=== PATIENT | female | born 1960 | race Caucasian/White ===

== ENCOUNTER 2019-10-28 09:27 | Inpatient (IN) | payer SELFPAY ==
[~2019-10-28] VITALS: Ht 170.2 cm; Wt 78.0 kg
[2019-10-28] VITALS (7 sets, daily range): BP systolic 86–97; BP diastolic 49–62
[~2019-10-28 09:27] MED LIST: IBUP400T21 PO; LEVO75TA6 PO; REDCAP2 PO
[2019-10-28] MEDS ORDERED: ACETAMINOPHEN IV 100 ML IV ONE (09:56)
[2019-10-28] MEDS ORDERED: ceFAZolin 1GM/50ML 100 ML IV ONE (09:56)
[2019-10-28] MEDS ORDERED: CELECOXIB 100 MG CAP ONE (09:56)
[2019-10-28] MEDS ORDERED: GENTAMICIN SULF 80 MG/2 ML VIAL ONE (09:57)
[2019-10-28] MEDS ORDERED: GENTAMICIN SULFATE 80 MG in D5W 5% 100 ML IV ONE (10:00)
[2019-10-28] MEDS ORDERED: PREGABALIN CAPSULE 75 MG CAP PO ONE (10:00)
[2019-10-28] MEDS ORDERED: CELECOXIB 100 MG CAP PO ONE (10:00)
[2019-10-28] MEDS ORDERED: ACETAMINOPHEN IV 1000 MG/100ML (10MG/ML) IV ONE (10:00)
[2019-10-28] MEDS ORDERED: VANCOMYCIN HCL 1000 MG VL ONE (10:38)
[2019-10-28] MEDS ORDERED: KETOROLAC TROMETH 30 MG/ML 1ML VIAL ONE (10:38)
[2019-10-28] MEDS ORDERED: TRANEXAMIC ACID 20 ML ONE (10:39)
[2019-10-28] MEDS ORDERED: BUPIVACAINE W/ EPINEPH 0.25% INJ 50ML MDV ONE (10:39)
[2019-10-28] MEDS ORDERED: MORPHINE SULF(PF) 0.5MG/ML 10ML VIAL ONE ×2 (10:51→11:21)
[2019-10-28] MEDS ORDERED: PHENYLEPHRINE HCL 10 MG/ML VL IV ONE (11:12)
[2019-10-28] MEDS ORDERED: TETRACAINE 1% INJ 2 ML VIAL IJ ONE (11:18)
[2019-10-28] MEDS ORDERED: MIDAZOLAM HCL 1MG/1ML-2 ML VIAL ONE (11:21)
[2019-10-28] MEDS ORDERED: fentaNYL CITRATE 100 MCG/2 ML VL ONE (11:21)
[2019-10-28] MEDS ORDERED: DexAMETHasone SOD PHOS 10MG/1ML VIAL INJ ONE (11:55)
[2019-10-28] MEDS ORDERED: PROPOFOL 10 MG/ML 20 ML IV ONE (11:55)
[2019-10-28] MEDS ORDERED: LABETALOL HCL 5 MG/ML 4ML SYRINGE IV PRN (12:00)
[2019-10-28] MEDS ORDERED: MIDAZOLAM HCL 1MG/1ML-2 ML VIAL IV PRN (12:00)
[2019-10-28] MEDS ORDERED: HYDROmorphone HCL 2 MG/ML VL IV PRN ×2 (12:00→14:15)
[2019-10-28] MEDS ORDERED: ONDANSETRON HCL 4 MG/2 ML VIAL IV PRN ×2 (12:00→14:15)
[2019-10-28] MEDS ORDERED: diphenhdrAMINE HCL 50 MG/1 ML VL IV PRN (12:00)
[2019-10-28] MEDS ORDERED: NALBUPHINE HCL 10 MG/1ml INJECTION SUBCUT ONE (12:00)
[2019-10-28] MEDS ORDERED: DexAMETHasone SOD PHOS 10MG/1ML VIAL INJ IV PRN (12:00)
[2019-10-28] MEDS ORDERED: KETOROLAC TROMETH 30 MG/ML 1ML VIAL IV PRN (12:00)
[2019-10-28] MEDS ORDERED: ePHEDrine SULFATE 50 MG/ML AMP IV PRN (12:00)
[2019-10-28] MEDS ORDERED: NALOXONE HCL 0.4 MG/ML VIAL IV PRN (12:00)
[2019-10-28] MEDS ORDERED: MORPHINE SULF INJ 2 MG/ML SYRINGE 1ML IV PRN (14:15)
[2019-10-28] MEDS ORDERED: NITROGLYCERIN 0.4 MG SL TAB SL PRN (14:15)
--- NOTE | 2019-10-28 15:15 | NUR ---
PT TRANSFERRED FROM OR, S/P LEFT HIP REPLACEMENT, PT SLEEPY, AWAKEN UPON VERBAL STIMULI. ORIENTED TO ENVIRONMENT. LEFT HIP DRESSING IN PLACE CDI, ABDUCTOR PAD IN PLACE. +1 PULSES TO BLE, SENSATION INTACT, PT ON 2LNC AT 100%, PLACED ON TELEMETRY: SR AT 61. BED LOCKED AND IN LOWEST POSITION, CALL LIGHT WITHIN REACH, FAMILY AT BEDSIDE. WILL CONTINUE TO MONITOR.
[2019-10-28] MEDS: ceFAZolin 1GM/50ML 50 ML IV SCH ×2 (15:57→20:04)
[2019-10-28] MEDS: LACTATED RINGER'S 1,000 ML IV SCH ×2 (15:57→21:53)
--- NOTE | 2019-10-28 17:00 | NUR ---
PT AWAKE, ALERT, ORIENTEDx4, DENIES PAIN AT MOMENT. EFFORTLESS BREATHING ON 2LNC 99% RR:15. WILL CONTINUE TO MONITOR.
[2019-10-28] MEDS: KETOROLAC TROMETH 30 MG/ML 1ML VIAL IV SCH (18:19)
--- NOTE | 2019-10-28 19:30 | NUR ---
Opening Shift Note Assumed care of patient, awake and alert. No S/S of distress/SOB or pain. Instructed on POC and to call for assist PRN, will continue to monitor for changes Q1hr and PRN.
--- NOTE | 2019-10-28 21:30 | NUR ---
Pt alert with no complaints of pain. Pt dressing on Left hip is clean, dry and intact. Resp 18, Hr 55 bpm, B/P 96/60. No distress noted. Will continue to monitor pt.
[2019-10-28] MEDS: DOCUSATE SOD 100 MG CAP PO SCH (21:52)
[2019-10-29] VITALS (18 sets, daily range): BP systolic 71–115; BP diastolic 43–70
[2019-10-29] MEDS: KETOROLAC TROMETH 30 MG/ML 1ML VIAL IV SCH ×4 (00:19→17:15)
[2019-10-29] MEDS: ceFAZolin 1GM/50ML 50 ML IV SCH (02:23)
--- NOTE | 2019-10-29 06:00 | NUR ---
Hernández catheter dc'd Order to discontinue hernández catheter. Hernández dc'd with clean technique following deflation of balloon. Patient tolerated well with no complaints of pain. Continue care.
[2019-10-29] MEDS: LEVOTHYROXINE SODIUM 50 MCG TAB PO SCH (06:15)
[2019-10-29 06:21] LABS: Hematocrit 30.9 % (36.0-46.0); Hemoglobin 10.8 g/dL (12.2-16.2)
[2019-10-29 06:43] LABS: Albumin 2.6 g/dL (3.4-5.0); Calcium 8.4 mg/dL (8.5-10.1); Potassium 4.4 mmol/L (3.5-5.1)
[2019-10-29 06:48] LABS: BUN/Creatinine Ratio 22.5; Bilirubin, Total 0.4 mg/dL (0.2-1.0); Total Protein 5.2 g/dL (6.4-8.2)
[2019-10-29] MEDS: LACTATED RINGER'S 1,000 ML IV SCH ×2 (07:52→20:07)
--- NOTE | 2019-10-29 09:50 | NUR ---
PATIENT AMBULATING WITH PHYSICAL THERAPY, TOLERATING ACTIVITY WELL. AMBULATING WITH FWW. [facility] ONTINUE TO MONITOR.
[2019-10-29] MEDS: ENOXAPARIN SOD 40 MG/0.4 ML SYRINGE SC SCH (10:00)
--- NOTE | 2019-10-29 10:30 | NUR ---
PT SITTING AT BEDSIDE CHAIR. PT SUDDENLY STATES " I FEEL FUZZY, NOT CLEAR VISION"; PT APPEARS LETHARGIC, VS: 91; 18; 100%2LNC; 106/88; BLOOD SUGAR: 118 PT TRANSFERRED BACK INTO BED, PHYSICAL THERAPY STAFF AT BEDSIDE. PT NOW IN BED AND STATES "I DO NOT FEEL FUZZY AT THE MOMENT", PT ORIENTED x4. IV FLUIDS INFUSING, COMFORTABLE ENVIRONMENT PROVIDED, FAMILY AT BEDSIDE, PT RESPONDS TO COMMANDS. BED LOCKED AND IN LOWEST POSITION, CALL LIGHT WITHIN REACH. WILL CONTINUE TO MONITOR.
[2019-10-29] MEDS: DOCUSATE SOD 100 MG CAP PO SCH ×2 (11:10→21:36)
[2019-10-29] MEDS: PANTOPRAZOLE 40 MG TAB PO SCH (11:10)
--- NOTE | 2019-10-29 11:40 | NUR ---
DR. BHARDWAJ IN TO SEE PT. PT AWAKE, ALERT, ORIENTEDx4. LOVENOX ON HOLD, PER MD. WILL CONTINUE TO MONITOR.
--- NOTE | 2019-10-29 16:49 | NUR ---
assessment Patient is a 59 year old female who is alert and oriented. Patients cognitive abilities are intact. Prior to admission patient lived home with family and functioned independently. Patient informed me she is able to care for her own ADLs. Per patient she will return home to her prior living arrangements post discharge and family will transport her home. Patient has been admitted for left hip replacement. Patient has a fww for home use. Patient may need home health for PT on discharge. Patient has [facility] [employer] insurance. Healthcare bills are paid 3 months in the rear. I informed patient she has a right to speak to a licensed master social worker regarding all care. I informed patient she has a right to participate in any and all discharge planning. Patient does not have a POA and advanced directive. I have offered patient information on POA and advanced directives. I informed the patient the advantages and benefits of having an Advanced Directive. Patient verbalized understanding and agreed to discharge plan. Addendum: 10/29/19 at 1654 by Shayna JONAS Amended: Links added.
--- NOTE | 2019-10-29 19:30 | NUR ---
Opening Shift Note Assumed care of patient, awake and alert. No S/S of distress/SOB. Instructed on POC and to call for assist PRN, will continue to monitor for changes Q1hr and PRN.
--- NOTE | 2019-10-29 20:15 | NUR ---
Patient transferred to [facility] with minimal assistance. Patient complaining of minimal to moderate pain with movement. Will provide PRN pain medication and continue to monitor.
[2019-10-29] MEDS: ACETAMINOPHEN 325 MG TAB PO PRN (21:36)
[2019-10-30] MEDS: KETOROLAC TROMETH 30 MG/ML 1ML VIAL IV SCH (00:17)
[2019-10-30 05:33] VITALS: BP 106/56
[2019-10-30] MEDS: LACTATED RINGER'S 1,000 ML IV SCH ×3 (06:02→21:21)
[2019-10-30 06:15] LABS: Basophils # (auto) 0 uL; Basophils % (auto) 0.1 % (0.0-2.0); Eosinophils # (auto) 0 uL; Eosinophils % (auto) 0.4 % (0.0-7.0); Hemoglobin 10.1 g/dL (12.2-16.2); Lymphocytes # (auto) 1.2 uL; Mean Corpuscular Hgb Conc. 34.9 g/dL (32.0-36.0); Mean Corpuscular Volume 91.8 fL (80.0-100.0); Monocytes # (auto) 0.7 uL; Monocytes % (auto) 9.3 % (0.0-12.0); Neutrophils # (auto) 5.6 uL; Neutrophils % (auto) 74.2 % (37.0-80.0); Platelet Count (auto) 147 10^3/uL (140-450); Red Blood Cells 3.16 10^6/uL (4.0-5.20); Red Cell Distribution Width 12.7 % (11.8-14.3); White Blood Cell 7.5 10^3/uL (4.4-10.8)
[2019-10-30 06:24] LABS: BUN/Creatinine Ratio 32.2; Calcium 8.4 mg/dL (8.5-10.1); Potassium 3.8 mmol/L (3.5-5.1)
[2019-10-30] MEDS: LEVOTHYROXINE SODIUM 50 MCG TAB PO SCH (06:33)
[2019-10-30 08:00] VITALS: BP 102/62
[2019-10-30 09:00] VITALS: BP 102/62
[2019-10-30] MEDS: DOCUSATE SOD 100 MG CAP PO SCH ×2 (09:07→21:21)
[2019-10-30] MEDS: PANTOPRAZOLE 40 MG TAB PO SCH (09:07)
[2019-10-30] MEDS: ENOXAPARIN SOD 40 MG/0.4 ML SYRINGE SC SCH (09:08)
[2019-10-30] MEDS: HYDROcodone-ACET 5/325MG TAB PO PRN ×2 (09:08→21:21)
--- NOTE | 2019-10-30 09:30 | NUR ---
NEAR SYNCOPAL EPISODE THE PATIENT WAS UP WALKING WITH PT WHEN SHE BECAME LIGHTHEADED AND DIZZY. SHE WAS IMMEDIATELY SAT IN A CHAIR AND VITAL SIGNS WERE TAKEN. (BLOOD PRESSURE WAS 69/53; HEART RATE 117; O2 SATURATION 96%; RESPIRATIONS 18) THE PATIENT REMAINED CONSCIOUS DURING EPISODE. SHE WAS TRANSFERRED TO HER BED AND THE DR. POPE WAS NOTIFIED. NO NEW ORDERS. WILL CONTINUE TO MONITOR.
--- NOTE | 2019-10-30 10:00 | NUR ---
BLOOD PRESSURE RECHECK. 108/63 MMHG. PATIENT SAYS SHE IS FEELING BETTER. NO MORE LIGHTHEADEDNESS. WILL CONTINUE TO MONITOR.
[2019-10-30] MEDS ORDERED: MORPHINE SULF INJ 2 MG/ML SYRINGE 1ML IV PRN (12:15)
[2019-10-30 13:00] VITALS: BP 112/70
[2019-10-30] MEDS: ACETAMINOPHEN 325 MG TAB PO PRN (14:45)
--- NOTE | 2019-10-30 15:17 | NUR ---
PHYSICAL THERAPY THE PATIENT WALKED WITH PT AGAIN. THE PATIENT TOLERATED AMBULATION WITH NO SYNCOPAL AND NEAR SYNCOPAL EPISODES. PATIENT HAS FLUIDS RUNNING. WILL CONTINUE TO MONITOR.
--- NOTE | 2019-10-30 16:17 | NUR ---
Discharge planning per SS consult, patient has orders for home PT. This patient does have insurance with [facility] [phone]. . Placed a call, spoke with rep Bruce and was advised that they way the insurance reimburses for services rendered is that patient receives a bill, sends it to them and they reimburse based on the bill. He advised in regards to the home health PT that if the vendor can fax an itemized list of services, they could generate a check for reimbursement in advance. Referral was sent to [facility] [phone], [facility] [phone], and [facility] [phone]. Acceptance is pending. The above notation regarding insurance was provided to the home health agencies for consideration.
[2019-10-30 17:00] VITALS: BP 112/65
[2019-10-30 22:57] VITALS: BP 100/58
[2019-10-31 04:48] VITALS: BP 114/76
[2019-10-31 06:30] LABS: Hematocrit 27.8 % (36.0-46.0); Hemoglobin 9.5 g/dL (12.2-16.2)
[2019-10-31] MEDS: LEVOTHYROXINE SODIUM 50 MCG TAB PO SCH (06:43)
--- NOTE | 2019-10-31 07:00 | NUR ---
OPENING SHIFT NOTE ASSUMED CARE OF THE PATIENT FROM THE SPECIALTY PERSON RN. THE PATIENT IS A&Ox4, NO SIGNS OR SYMPTOMS OF DISTRESS. EDUCATED THE PATIENT ON POC AND PATIENT VERBALIZED UNDERSTANDING. THE PATIENT'S CALL LIGHT IS WITHIN REACH AND THE BED IS IN THE LOWEST, LOCKED POSITION. WILL ROUND HOURLY AND CONTINUE TO MONITOR.
[2019-10-31 08:00] VITALS: BP 126/83
[2019-10-31 09:00] VITALS: BP 108/71
[2019-10-31] MEDS: PANTOPRAZOLE 40 MG TAB PO SCH (09:17)
[2019-10-31] MEDS: ENOXAPARIN SOD 40 MG/0.4 ML SYRINGE SC SCH (09:17)
[2019-10-31] MEDS: DOCUSATE SOD 100 MG CAP PO SCH (09:17)
[2019-10-31] MEDS: HYDROcodone-ACET 5/325MG TAB PO PRN (09:18)
[2019-10-31 13:00] VITALS: BP 99/57
--- NOTE | 2019-10-31 16:23 | NUR ---
Discharge instructions given as ordered. Encourage to follow up with PMD as instructed. All questions and concerns addressed. Patient verbalized understanding. IV removed with catheter intact, pressure dressing applied. Telemetry unit returned to ICU. Patient taken to vehicle via wheelchair with all personal belongings, accompanied by staff and family member. No distress noted at time of departure.
== END 2019-10-31 16:20 | disposition home health service (06) | DRG 470 ==
LOC: SUR 09:27 → TELE-WESTW 15:24
PROVIDERS: ADMIT Orthopaedic Surgery Adult Reconstructive Orthopaedic Surgery; ATTEND Internal Medicine
PROC: 8E0YXBZ Computer Assisted Procedure of Lower Extremity (ICD-10-PCS; 2019-10-28)
PROC: 0SRD06Z Replacement of Left Knee Joint with Oxidized Zirconium on Polyethylene Synthetic Substitute, Open Approach (ICD-10-PCS; principal; 2019-10-28 11:22)
DX: M16.12 Unilateral primary osteoarthritis, left hip (principal); E03.9 Hypothyroidism, unspecified; R55 Syncope and collapse
CPT/HCPCS: 36415; 72170; 73501; 80048; 80053; 82962; 84443; 85014; 85018; 85025; 86850; 86900; 86901; 97110; 97116; 97530; A4565; G0378; J0131; J0690; J1100; J1885; J2250; J2704; J7060